=== PATIENT | male | born 1935 | race Asian ===

== ENCOUNTER 2019-01-02 15:48 | Emergency (ER) | payer MEDICARE, OTHER ==
[~2019-01-02] VITALS: Ht 170.2 cm; Wt 68.0 kg
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
[2019-01-02] MEDS ORDERED: UNOBMED (17:07)
--- NOTE | 2019-01-02 17:07 | NUR ---
ED Nurse Note: PER PT, HE HAS HOME MEDICATIONS BUT DOES NOT REMEMBER AND HE DOES NOT HAVE THE MEDICATION LIST.
--- NOTE | 2019-01-02 17:34 | Diagnostic Imaging Report ---
Indication: Back pain Technique: Continuous helical transaxial imaging of the lumbar spine was obtained from the lung bases to the pubic symphysis. No IV contrast was administered. Coronal 2-D reformats were also obtained. Study obtained in a Siemens sensation [address] Total Dose length Product (DLP): 337.[address] Dose Index Volume (CTDIvol): 10.63 mGy Comparison: None Findings: There is a mild contour deformity along the anterior superior margin of the L2 vertebra consistent with a acute nondisplaced fracture. There is a minimal loss of height. There are certainly no evidence of retropulsion. Correlate clinically. This was discussed with Dr. Davison in the emergency Department. Degenerative disc disease noted at multiple levels with some narrowing. There is sclerosis and osteophyte formation involving the lumbar facets at multiple levels. Mild anterolisthesis noted at L4-5. Endplate spur formation noted. Some vacuum disc phenomena noted. Bones are osteopenic. There is transitional anatomy at this level. For the purposes of this exam the transitional level is designated S1. There is an incidental, partially visualized aneurysm of the abdominal aorta. This has been stented as there is a partially imaged aortobiiliac stent graft noted. IMPRESSION: Subtle, mild acute nondisplaced fracture of the superior and anterior aspect of the L2 vertebra. Minimal loss of height. No retropulsion. Degenerative spondylosis and osteopenia. Aortic aneurysm. Aortobiiliac stent graft noted. Findings discussed with the emergency room physician 5:20 PM 01/02/[address] scanner at [facility] is accredited by the [employer] and the scans are performed using dose optimization techniques as appropriate to a performed exam including Automatic Exposure control.
--- NOTE | 2019-01-02 17:36 | Diagnostic Imaging Report ---
Indication: Pelvic trauma. Back pain pelvic pain. Technique: Continuous helical transaxial imaging of the pelvis was obtained from the iliac crest to the pubic symphysis. Coronal 2-D reformats were also obtained. Study obtained in a Siemens sensation [address] Intravenous non-ionic contrast was administered. Total Dose length Product (DLP): 282.[address] Dose Index Volume (CTDIvol): 9.55 mGy Comparison: None Findings: No acute fractures identified. Bones are osteopenic. There are degenerative changes of the visualized lower lumbar spine, both sacroiliac joints and both hip joints. Narrowing and osteophyte formation are noted involving the facets. There is moderate stool retention in the rectum. There is an incidental 6.8 cm fusiform aneurysm of the lower abdominal aorta. Aortobiiliac stent graft partially visualized on this examination. Moderate arterial calcifications are present. IMPRESSION: No acute pelvic fracture identified. Incidental fusiform aneurysm of the abdominal aorta. Aortobiiliac stent graft noted. The CT scanner at [facility] is accredited by the [employer] and the scans are performed using dose optimization techniques as appropriate to a performed exam including Automatic Exposure control.
[2019-01-02 17:37] VITALS: BP 150/90
[2019-01-02] MEDS ORDERED: IBUPROFEN600 MG ORAL (19:30)
--- NOTE | 2019-01-02 19:35 | NUR ---
ED Nurse Note: RECIEVED REPORT TO RESUME CARE, PT LYING ON GURNEY IN HALLWAY BED, AWAKE, ALERT AND ORIENTED X 4, PT DENIES CP OR ANY PAIN, NO SOB OR LBORED BREATHING,PT WAITING FOR SON TO DISCHARGE TO HOME, WILL CONTINUE TO MONITOR WHILE WAITING FOR PT TRANSPORT.
[2019-01-02 20:00] VITALS: BP 144/84
[2019-01-02 20:10] VITALS: BP 144/84
--- NOTE | 2019-01-02 20:10 | NUR ---
ED Nurse Note: PT SON ARIVED FOR TRANSPORT, PT IS AWAKE, ALERT AND ORIENTED X 4, AMBULATES WELL, PT AND SON GIVEN D/C INSTRUCTIONS AND AFTER CARE INFO, MD SAT AND EXPLAINED TO BOTH PARTIES F/U INFO AND AFTER CARE INSTRUCTIONS, PT ASSISTED TO CAR VIA WHEELCHAIR, NAD NOTED DURING PT D/C TO HOME.
== END 2019-01-02 20:10 | disposition home or self-care (01) ==
LOC: EDBD 15:48 → EMR 18:12
DX: M54.5 Low back pain (principal); Z87.891 Personal history of nicotine dependence; V78.1XXA Passenger on bus injured in noncollision transport accident in nontraffic accident, initial encounter; Y92.89 Other specified places as the place of occurrence of the external cause; W01.10XA Fall on same level from slipping, tripping and stumbling with subsequent striking against unspecified object, initial encounter
CPT/HCPCS: 72131; 72192; 99284